=== PATIENT | male | born 1965 | race Caucasian/White ===

== ENCOUNTER 2020-06-03 22:15 | Emergency (ER) | payer MEDICAID ==
[~2020-06-03] VITALS: Ht 170.2 cm; Wt 90.7 kg
[2020-06-03 22:30] VITALS: BP_SYST 103
[2020-06-04] MEDS ORDERED: LORazepam 2 MG/ML VIAL IVP ONE (03:30)
[2020-06-04] MEDS ORDERED: MORPHINE 4 MG/ML INJ. SYRINGE IVP ONE ×2 (03:30)
[2020-06-04 04:05] VITALS: BP_SYST 142
== END 2020-06-04 04:05 | disposition home or self-care (01) ==
LOC: SED 22:15
DX: S52.592A Other fractures of lower end of left radius, initial encounter for closed fracture (principal); W11.XXXA Fall on and from ladder, initial encounter; Y93.89 Activity, other specified; Y92.89 Other specified places as the place of occurrence of the external cause; Y99.8 Other external cause status
CPT/HCPCS: 29125; 73110 ×2; 96374; 96375; 96376; 99284; J2060; J2270